=== PATIENT | male | born 1980 | race Caucasian/White ===

== ENCOUNTER 2016-08-29 03:01 | Emergency (ER) | payer SELFPAY ==
[~2016-08-29] VITALS: Ht 193 cm; Wt 136.4 kg
[2016-08-29 03:03] VITALS: BP 158/80; TEMP 97.9
[2016-08-29] MEDS ORDERED: CLEOCIN HC150 MG/CAP PO (03:32)
[2016-08-29] MEDS ORDERED: NORCO 325 MG-7.1 TAB PO (03:32)
[2016-08-29 03:52] VITALS: PULSE 90
[2016-08-29] MEDS ORDERED: AMOXICILLIN 50500 MG PO (17:03)
== END 2016-08-29 03:53 | disposition home or self-care (01) ==
LOC: COL.ER 03:01
DX: K08.89 Other specified disorders of teeth and supporting structures (principal)

== ENCOUNTER 2016-12-09 15:52 | Emergency (ER) | payer SELFPAY ==
[~2016-12-09] VITALS: Ht 193 cm; Wt 136.4 kg
[~2016-12-09 15:52] MED LIST: AMOXICILLIN 50500 MG PO; CLEOCIN HC150 MG/CAP PO; NORCO 325 MG-7.1 TAB PO
[2016-12-09 15:54] VITALS: TEMP 98.3
[2016-12-09] MEDS ORDERED: ULTRAM 50MG TAB50 MG PO (16:11)
[2016-12-09 16:51] VITALS: BP 167/76; PULSE 84
== END 2016-12-09 16:52 | disposition home or self-care (01) ==
LOC: COL.ER 15:52
DX: M25.522 Pain in left elbow (principal); M10.9 Gout, unspecified; F17.210 Nicotine dependence, cigarettes, uncomplicated
CPT/HCPCS: J1885